=== PATIENT | female | born 1955 | race American Indian/Alaskan Native ===

== ENCOUNTER 2021-09-14 19:36 | Emergency (ER) | payer MEDICARE, OTHER ==
[~2021-09-14] VITALS: Ht 167.6 cm; Wt 67.3 kg
[~2021-09-14 19:36] MED LIST: METOCLOPRAMIDE10 MG PO
[2021-09-14] MEDS ORDERED: GLUCOTROL XL5 MG PO (19:54)
[2021-09-14] MEDS ORDERED: METFORMIN HCL500 MG PO (19:54)
[2021-09-14] MEDS ORDERED: LIPITOR20 MG GT (19:54)
[2021-09-14] MEDS ORDERED: D3 DOTS50 MCG PO (19:55)
[2021-09-14] MEDS ORDERED: GABAPENTIN300 MG PO (19:55)
[2021-09-14] MEDS ORDERED: PSEUDOEPHEDRINE60 MG PO (19:55)
--- NOTE | 2021-09-16 14:58 | EKG ---
[facility] [address] [facility] [place] [address] Signed Normal sinus rhythm Normal ECG No previous ECGs available Confirmed by GINETTE HUERTAS MD ([id number]) on 09/16/2021 2:58:25 PM Electronically Signed By: GINETTE HUERTAS MD 09/16/21 1458 PATIENT NAME: LEANNE ALTAMIRANO Electrocardiogram DATE OF : 57 PHYSICIAN: GINETTE HUERTAS MD REPORT #: [id number] REPORT IS CONFIDENTIAL AND NOT TO BE RELEASED WITHOUT AUTHORIZATION
== END 2021-09-14 23:18 | disposition left against medical advice (07) ==
LOC: ED 19:36
DX: R07.89 Other chest pain (principal); E11.40 Type 2 diabetes mellitus with diabetic neuropathy, unspecified; Z88.8 Allergy status to other drugs, medicaments and biological substances; Z79.84 Long term (current) use of oral hypoglycemic drugs; Z79.899 Other long term (current) drug therapy
CPT/HCPCS: 71045; 80053; 83690; 83735; 84484; 85025; 85379; 93005; 93010; 96374; 96375; 99285-25; J2765

== ENCOUNTER 2021-12-07 14:38 | Emergency (ER) | payer MEDICARE, OTHER ==
[~2021-12-07] VITALS: Ht 167.6 cm; Wt 66.7 kg
[~2021-12-07 14:38] MED LIST changes: +D3 DOTS50 MCG PO; +GABAPENTIN300 MG PO; +GLUCOTROL XL5 MG PO; +HYDROCODON-ACE1 EAC8 PO; +LIPITOR20 MG PO; +METFORMIN HCL500 MG PO; +NEXIUM 24HR20 M2 PO; +OXYCODONE HCL5 MG PO; +OXYCONTIN10 MG PO; +PSEUDOEPHEDRINE60 MG PO
--- OUTSIDE RECORDS SUMMARY | 2021-12-07 14:46 | XMS ---
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 09/14/2021 19:37 - Other Details: PATIENT LEFT AMA. CRITERIA MET - [facility] - 2 Visits in 30 Days - [facility] - Has Care Guidelines CARE PROVIDERS MAURICIO PRIEST [facility] 12/04/2021-Current PHONE: Unknown Shanti has no Care Guidelines for this patient. Care History Medical/Surgical 12/04/[address] [facility] - PATIENT IS [facility] ELIGIBLE, \T\middot;\T\nbsp; PLEASE REFER PATIENT TO [facility] FOR NON EMERGENT MEDICAL NEEDS. \T\middot;\T\nbsp; [facility] CAN SEE PATIENTS SAME DAY FOR APTS IF PATIENT CALLS FIRST THING IN THE MORNING. E.D. VISIT COUNT (12 MO.) 3 [facility]. TOTAL 3 NOTE: Visits indicate total known visits. 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 - Other superintendent marine oil terminal (current) drug therapy - Other chest pain - Chest pain, unspecified - Allergy status to other drugs, medicaments and biological substances - Type 2 diabetes mellitus with diabetic neuropathy, unspecified INPATIENT VISIT TRACKING (12 MO.) 12/03/2021 15:14 [facility] TYPE: Observation COMPLAINT: - UPPER GI BLEEDING DIAGNOSES: - Gastritis, unspecified, without bleeding - Type 2 diabetes mellitus with diabetic autonomic (poly)neuropathy - Fibromyalgia - Acute posthemorrhagic anemia - Type 2 diabetes mellitus with diabetic neuropathy, unspecified - Hyperlipidemia, unspecified - Esophagitis, unspecified with bleeding - Chronic or unspecified duodenal ulcer with hemorrhage - Hematemesis - Chronic pain syndrome - Essential (primary) hypertension - Gastroparesis - residential (current) use of oral hypoglycemic drugs - Gastritis, unspecified, with bleeding - Opioid dependence, uncomplicated [email or web address]
--- NOTE | 2021-12-07 18:58 | EKG ---
[facility] [address] [facility] [place], [place] [address] Signed Normal sinus rhythm Normal ECG When compared with ECG of 14-SEP-2021 19:57, No significant change was found Confirmed by ALEXANDRA MITCHELL DO ([id number]) on 12/07/2021 6:58:52 PM Electronically Signed By: ALEXANDRA MITCHELL DO 12/07/21 1858 PATIENT NAME: JADA LEANNE BRUSH Electrocardiogram DATE OF : 57 PHYSICIAN: ALEXANDRA MITCHELL DO REPORT #: [id number] REPORT IS CONFIDENTIAL AND NOT TO BE RELEASED WITHOUT AUTHORIZATION
== END 2021-12-07 19:05 | disposition home or self-care (01) ==
LOC: ED 14:38
DX: K92.2 Gastrointestinal hemorrhage, unspecified (principal); D64.9 Anemia, unspecified; E11.40 Type 2 diabetes mellitus with diabetic neuropathy, unspecified; Z88.8 Allergy status to other drugs, medicaments and biological substances; Z79.899 Other long term (current) drug therapy; Z79.84 Long term (current) use of oral hypoglycemic drugs; Z79.891 Long term (current) use of opiate analgesic
CPT/HCPCS: 36415; 71045; 80048; 84484; 85025; 93005; 93010; 99285-25

== ENCOUNTER 2022-08-12 21:13 | Inpatient (IN) | payer MEDICARE, OTHER ==
[~2022-08-12] VITALS: Ht 167.6 cm; Wt 68.1 kg
--- NOTE | ~2022-08-12 | OR ---
[place] [id number] [place], [place] [address] [place] DATE OF OPERATION: 08/17/2022 SURGEON: Padmini Banks MD PREOPERATIVE DIAGNOSIS: Hematochezia. POSTOPERATIVE DIAGNOSES: 1. Hematochezia. 2. Colonic polyps. PROCEDURE: Colonoscopy with biopsy. ANESTHESIA: Monitored anesthesia care. ESTIMATED BLOOD LOSS: None. SPECIMEN: Colonic polyps x2. FINDINGS: Ascending colon polyp, descending colon polyp. COMPLICATIONS: None. DISPOSITION: Stable to Postanesthesia Care Unit. INDICATIONS FOR THE PROCEDURE: The patient is a 67-year-old female, who presented with hematemesis and underwent EGD on 08/13. Large amount of blood was found in the stomach and duodenum. The patient continued to pass clots and blood per rectum. Concern was raised regarding possibility of lower GI component. Plan was made to proceed to the operating room for colonoscopy. Risks and benefits of the procedure were explained to the patient including, but not limited to bleeding, infection, missed diagnosis including cancer, perforation need for additional procedures, incomplete procedure, risk of anesthesia, aspiration, DVT, PE, PATIENT NAME: LEANNE ALTAMIRANO OPERATIVE REPORT DATE OF : 57 REPORT #: [id number] PHYSICIAN: PADMINI BANKS MD PCP: RAHAT MARIE MD REPORT IS CONFIDENTIAL AND NOT TO BE RELEASED WITHOUT AUTHORIZATION [address] [address] [place], stroke, and . The patient understood risks and signed informed consent. PROCEDURE IN DETAIL: The patient was taken to the operating room and monitored anesthesia care was established. The rectal exam was performed. No hemorrhoids were noted. Colonoscopy proceeded through the colon and rectum to the ileocecal valve. The ileocecal valve and appendiceal orifice were photographed. Bowel prep was poor. Withdrawal proceeded. The colonoscope was carefully withdrawn with visualization through the cecum, ascending colon, transverse colon, descending colon and sigmoid colon. An ascending colon polyp was identified and resected using cold snare. A descending colon was also noted and resected using cold forceps. Upon withdrawal into the rectum, retroflexion was performed. No hemorrhoids were noted and the area was photographed. There were no rectal lesions. The colonoscope was then removed. The patient tolerated the procedure without any complications and was transferred in stable condition to Postanesthesia Care Unit. MD KELTON lAdana/PATRICIA /[id number] Copies: ~ PATIENT NAME: LEANNE ALTAMIRANO LISANDRA OPERATIVE REPORT DATE OF : 57 REPORT #: [id number] PHYSICIAN: PADMINI BANKS MD PCP: RAHAT MARIE MD REPORT IS CONFIDENTIAL AND NOT TO BE RELEASED WITHOUT AUTHORIZATION
--- OUTSIDE RECORDS SUMMARY | 2022-08-12 21:16 | XMS ---
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 CRITERIA MET - PDMP - [facility] - Has Care Guidelines CARE PROVIDERS MAURICIO PRIEST [facility] 12/04/2021-Current PHONE: Unknown Shanti has no Care Guidelines for this patient. Care History Medical/Surgical 12/04/2021 [facility] - PATIENT IS [facility] ELIGIBLE, \T\middot;\T\nbsp; PLEASE REFER PATIENT TO [facility] FOR NON EMERGENT MEDICAL NEEDS. \T\middot;\T\nbsp; [facility] CAN SEE PATIENTS SAME DAY FOR APTS IF PATIENT CALLS FIRST THING IN THE MORNING. E.D. VISIT COUNT (12 MO.) 4 [facility]. TOTAL 4 NOTE: Visits indicate total known visits. ED/UCC VISIT TRACKING (12 MO.) 08/12/2022 21:[address] 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 12/03/2021 15:13 [facility] TYPE: Emergency COMPLAINT: - VOMITING BLOOD 09/14/2021 19:37 [facility] TYPE: Emergency COMPLAINT: - CHEST PAIN DIAGNOSES: - Chest pain, unspecified - Other skilled nursing (current) drug therapy - Allergy status to other drugs, medicaments and biological substances - Other chest pain - alf (current) use of oral hypoglycemic drugs - Type 2 diabetes mellitus with diabetic neuropathy, unspecified INPATIENT VISIT TRACKING (12 MO.) 12/03/2021 15:14 [facility] TYPE: Observation COMPLAINT: - UPPER GI BLEEDING DIAGNOSES: - Acute posthemorrhagic anemia - Chronic pain syndrome - Type 2 diabetes mellitus with diabetic autonomic (poly)neuropathy - Chronic or unspecified duodenal ulcer with hemorrhage - Opioid dependence, uncomplicated - Esophagitis, unspecified with bleeding - alf (current) use of oral hypoglycemic drugs - Type 2 diabetes mellitus with diabetic neuropathy, unspecified - Essential (primary) hypertension - Fibromyalgia - Hematemesis - Gastritis, unspecified, without bleeding - Contact with and (suspected) exposure to COVID-19 - Gastritis, unspecified, with bleeding - Hyperlipidemia, unspecified - Gastroparesis [email or web address]
--- NOTE | 2022-08-13 08:00 | NUR ---
PT ARRIVES TO CCU VIA FARHEEN. AAO X 4. INITIAL VS STABLE - LEVOFED DRIP STOPPED. PROTONIX CONTINUOUS INFUSION IN RIGHT IJ. PT DENIES PAIN AND NAUSEA AT THIS TIME.
[2022-08-13] MEDS ORDERED: PANTOPRAZOLE SO40 MG PO (08:34)
[2022-08-13] MEDS ORDERED: METFORMIN HCL500 M1 PO (08:36)
[2022-08-13] MEDS ORDERED: DICLOFENAC SOD100 G1 TOP (08:37)
--- NOTE | 2022-08-13 08:47 | NUR ---
PATIENT FOR ASSISANCE CALLING HER . IN ROOM AT THIS TIME
--- NOTE | 2022-08-13 08:47 | NUR ---
PATIENT CALLED TO CALL . IN ROOM AT THIS TIME
--- NOTE | 2022-08-13 09:14 | NUR ---
PRN MORPHINE PROVIDED FOR GENERALIZED PAIN R/T NG TUBE PLACEMENT.
--- NOTE | 2022-08-13 09:48 | NUR ---
NG TUBE PLACED BY CCU RN IN RIGHT NARE, CXR OBTAINED FOR PLACEMENT CONFIRMATION. PT TOLERATED WITH MODERATE DISCOMFORT, NO EMISIS. LAVAGE PER ORDER TO BE STARTED ONCE XRAY READ. PT PROVIDED SPONGE FOR ORAL CARE. DENIES FURTHER NEEDS AT THIS TIME.
--- NOTE | 2022-08-13 10:00 | NUR ---
MOIST MOUTH SPONGES AT BEDSIDE FOR ORAL CARE. CALL LIGHT IN EASY REACH
--- NOTE | 2022-08-13 10:30 | NUR ---
FORD CATH PULLED PER VERBAL ORDER FROM DR. HUERTAS. PT TOLERATED WITHOUT DIFFICULTY. 225 OUT SINCE ARRIVING TO FLOOR.
--- NOTE | 2022-08-13 10:58 | NUR ---
NG TUBE IRRIGATED WITH 250ML OF STERILE WATER, CLAMPED FOR 10 MIN, NO ON LOW INT SUCTION. PT DENIES NAUSEA. PT DROWSY RESTING IN BED. SWABS PROVIDED FOR ORAL CARE.
--- NOTE | 2022-08-13 11:00 | NUR ---
Spoke with Veronique. She was not feeling well and interview was short. Pt lives in a house with her spouse, brothers, and disabled 46 yo son. She does not use any DME. Denies issues getting in or out of her home. Will follow up tomorrow with more in depth interview.
--- NOTE | 2022-08-13 12:00 | NUR ---
RN IN ROOM TO ASSESS PT - GI LAVAGE VIA NG CONTINUING, SUCTION CONTENTS LIGHTENING IN COLOR, COFFEE GROUND SEDIMENT, NO SAULO BLOOD NOTED. H/H STABLE, VS STABLE.
--- NOTE | 2022-08-13 12:49 | NUR ---
VITALS CHARTED. CALL LIGHT IN EASY REACH
--- NOTE | 2022-08-13 13:20 | NUR ---
250 ML OF WATER INSTILLED TO NG TUBE THEN CLAMPED. PATIENT IS RESTING AND DENIES NAUSEA. HOB ELEVATED.
--- NOTE | 2022-08-13 14:51 | NUR ---
PT RESTING IN BED - PRE PROCEDURE VOID TO BSC COMPLETE. LAVAGE COMPLETE. PT EDUCATED ON POC AND EGD PROCEDURE. PT STATES SHE FEELS "BETTER ACTUALLY". UPDATED VIA TELEPHONE.
--- NOTE | 2022-08-13 16:14 | NUR ---
PT USES CALL LIGHT TO ALERT DS STAFF OF URGE TO VOID. PT UP TO BEDSIDE COMMODE AND ABLE TO VOID 100 MLS LIGHT POOJA COLORED URINE. BACK TO STRETCHER AND PROVIDED WARM BLANKET AND TISSUE PER REQUEST. CALL LIGHT WITHIN REACH.
--- NOTE | 2022-08-13 19:00 | NUR ---
PT ARRIVES TO FLOOR FROM OR VIA STRETCHER ALERT BUT DROWSY. CURRENTLY ON 10L VIA OXYMASK, SPO2 VARIABLE WITH PROBE ON LEFT EAR LOBE - HOB ELEVATED. RR 32, ONE UNIT OF BLOOD FINISHING INFUSING UPON ARRIVAL. PT BP STABLE AFTER REPOSISTIONING TO BED. APPROX 50 ML OF BLOODY LIQUID STOOL NOTED ON CHUX AND CLEANED. PT APPEARS MORE PALE AND ABD DISTENDED THAN BEFORE EGD PROCEDURE. IVF RECONNECTED PER ORDER AT 100 AND PROTONIX INFUSION RESTARTED AT 25ML/H. PT EXTREMETIES COLD, WARM BLANKETS APPLIED.
--- NOTE | 2022-08-13 19:50 | NUR ---
PT RESTIGN IN BED, HANDS ON SIDE RAILS, SHE IS SAYING "HURRY, HURRY HURRY" SHE IS ASKING FOR PAIN MEDICATIONS, 2MG IV MORPHINE ADMINISTERED AT THIS TIME, TXA STARTED, PT NOW RELAXING MORE, NO LONGER VERBALIZING DISTRERSS POST PAIN MEDICATIONS, V/S STABLE
--- NOTE | 2022-08-13 20:13 | NUR ---
pt resting in bed, alert to staff. blood draw from ij blue line, shut off all infusions, wasted 8ml of blood and draw additional 10ml for lab technician at bedside. pt off bed gomez, txa infusion complete, blood units ready in lab per notification, platlets to be 4 hours to arrive per lab report over phone.
--- NOTE | 2022-08-13 20:35 | NUR ---
DR HUERTAS NOTIFIED OF CALCIUM 5.8
--- NOTE | 2022-08-13 20:45 | NUR ---
NOTIFIED OF MORE DARK COLORED BLOOD STOOL AT THIS TIME.
--- NOTE | 2022-08-13 20:46 | NUR ---
08/13/222045 EstefaniUrsula 1754- PT ARRIVES TO PACU REACTIVE TO PAINFUL STIMULI. PT IS NEEDING A JAW THRUST TO KEEP AIRWAY OPEN AND PT RESPONDING. RESP EVEN AND TACHYPNEIC. PT PLACED ON AN EAR PROBE FOR OXYGEN SAT HER PULSE OX ON HER FINGER IS NOT GETTING A GOOD SIGNAL. COPRA SAMPLER AND MULTIPLE RN'S AT THE BEDSIDE. FLUID IS ON PRESSURE BAG. 1800- BLOOD SUGAR IS 162 TAKEN BY SHERIN CABA RN. 180- PT IS ABLE TO SAY SHE IS NAUSEOUS. DIFFICULT TO UNDERSTANDING. PT PROVIDED EMESIS BAG AND SUCTION READY. PT LAYING SLIGHTLY ON HER LEFT SIDE WITH HER HEAD TURNED. 180- OXYGEN SAT DROPPED TO THE HIGH 80'S ON 6L VIA OXYMASK. OXYGEN INCREASED TO 10L VIA OXYMASK. 180- PT PASSING FLATUS AND DARK RED, GELATINOUS STOOL. CHUX BEING PLACED UNDER PT. PT CLEANSED WITH WIPES. COPRA SAMPLER REMAINS AT THE BEDSIDE AND AWARE. 180- OXYGEN TITRATED DOWN TO 6L VIA OXYMASK HER OXYGEN SAT HAS BEEN READING IN THE HIGH 90'S ON 10L. 181- ZOFRAN PROVIDED IV PT IS ABLE TO STATE SHE IS FEELING NAUSEOUS. PT DOES NOT FOLLOW COMMANDS WELL. BESIDES SAYING SHE IS NAUSEOUS, PT IS SAYING, "HELP ME" IN QUITE TONES. PT DOES NOT OPEN HER EYES. PT PASSING MORE DARK, RED GELANTINOUS STOOL. CHUX REMOVED. PT PLACED ON A BED PAULA. PT IS MOVING AROUND IN THE BED OFTEN AND CLENCHING HER EYES SHUT. PT DOES NOT ANSWER IF SHE IS HAVING PAIN. 1819- OXYGEN TITRATED BACK UP TO 10L VIA OXYMASK PT'S OXYGEN SAT DROPPING INTO THE LOW TO MID 80'S ON 6L VIA OXYMASK. PT WAKES UP ON AND OFF ON HER OWN ASKING FOR HELP. PT DOES NOT ANSWER QUESTIONS APPROPRIATELY OR FOLLOW COMMANDS WELL. PT IS NO LONGER REPORTING NAUSEA. ANOTHER RN IN LAB OBTAINING BLOOD. 1825- BLOOD STARTED ON PRESSURE BAG. COPRA SAMPLER REMAINS AT THE BEDSIDE ALONG WITH MULTIPLE RN'S. PT STATING, "PLEASE HURRY". PT HAS BLANKETS OFF SHE HAS PUSHED THEM OFF OF HER. PT NODS WHEN ASKED IF SHE IS HOT. COOL AIR BEING PROVIDED. 1834- PT IS CALM IN THE BED AT THIS TIME. FACE IS RELAXED AND PT IS NO LONGER MOVING IN THE BED. PT DOES WAKE UP ON AND OFF, STILL REMAINS NOT FOLLOWING ALL COMMANDS. 183- PT HOLDING HER EYES CLOSED AND MOVING AROUND IN BED AGAIN. ATTEMPTING TO REORIENTED THE PT. TOLD PT HER PROCEDURE WAS OVER AND SHE WAS RECEIVING BLOOD TO HELP HER. PT STATES, "PLEASE HURRY". CONTINUE TO TRY TO REORIENT THE PT AND LET HER KNOW SHE IS GETTING HELP. 184- PT TAKEN OFF THE BEDPAN. MORE DARK RED GELANTINOUS STOOL NOTED. BLOOD REMAINS ON A PRESSURE BAG. PT BEING TAKEN DOWN TO CCU. 185- PT BEING TURNED AND CLEANED BY MULTIPLE RN'S DUE TO STOOL. PT PROVIDED A CLEAN GOWN AND FRESH CHUX AND LINENS. PT IS CALM AND NO LONGER SAYING, "PLEASE HURRY". PT ABLE TO BE TRANSFERRED TO THE HOSPITAL BED. 1854- BLOOD ADMINISTRATION COMPLETED. DR. HUERTAS AT THE BEDSIDE. REPORT GIVEN TO CCU RN. ALL QUESTIONS ANSWERED. PT POSITIONED IN BED. PT REMAINS ON 10L OXYGEN VIA OXYMASK. RESP EVEN AND TACHYPNEIC. OXYGEN SAT LOW TO MID 90'S ON THIS. PT REMAINS MORE RELAXED. WAKES UP OFF AND ON. REMAINS ONLY FOLLOWING SOME COMMANDS. BED IN LOWEST POSITION, BED RAILS UP X3, CALL LIGHT PROVIDED. LR REMAINS INFUSING INTO THE CENTRAL LINE.
--- NOTE | 2022-08-13 20:59 | NUR ---
PT CLEANED UP OF AND LINENS CHANGED, FIRST UNIT OF BLOOD TRANSFUSING AT THIS TIME.
--- NOTE | 2022-08-13 21:33 | NUR ---
PT IS RESTING IN BED, EYES CLOSED SNORING NOTED. NO DISTRESS, PT HAS HAD ANOTHER SMALL DARK RED BM AT THIS TIME. SPOUSE HAS LEFT FOR NIGHT, HE ASKS TO BE CALLED IF THERE ARE ANY SIGNIFICANT CHANGES OVERNIGHT
--- NOTE | 2022-08-13 22:44 | NUR ---
ALEKSANDAR ALVARADO NOTIFIED OF PT STATUS, 1ST UNIT BLOOD COMPLETE, PT CLEANED FROM INCONT OF DARK RED BLOOD. V/S STABALIZING. SHE IS ALERT AND ORIENTED.
--- NOTE | 2022-08-13 23:06 | NUR ---
PT NOW ON ROOM AIR 94% OXYGEN SATURATION. PT SITTING UP EATING ICE CHIPS AT THIS TIME, 2MG IV MORPHINE GIVEN FOR PAIN 7/10 AT HER LOWER BACK
--- NOTE | 2022-08-14 00:38 | NUR ---
BLOOD COMPLETE, PT REPORTS MILD NAUSEA, CALLED FOR NAUSEA MEDICATIONS, NEW ORDERS. PT ASK IF PAIN MEDICATION AVAILABLE AT THIS TIME
--- NOTE | 2022-08-14 02:05 | NUR ---
platlets infusing at this time, pt resting in bed, eyes closed v/s stable. pt cleaned from dark red blood bm
--- NOTE | 2022-08-14 02:28 | NUR ---
UNIT TWO OF PLAELETS STARTED AT THIS TIME. PT RESTING QUIETLY I BED EYES CLOSED SNORING NOTED, NO DISTRESS OR NEW CONCERNS AT THIS TIME.
--- NOTE | 2022-08-14 03:40 | NUR ---
CALLED TO UPDATE THAT PT HAS CONTINUED TO HAVE RED BLOOD STOOLS, JUST HAD LARGE RED BLOODY STTOL LARGE/LIQUID,DISCUSSED LABS AND NEW ORDERS TO INSURE TWO MORE RBC IN LAB CROSS MATCHED AT THIS TIME, ALSO ORDER FOR TAG RED BLOOD CELL SCAN TO BE DONE IN AM, STAT., PLAN TO HAVE DONE IN AM. THIS ORDER HAS BEEN PLACED.
--- NOTE | 2022-08-14 03:59 | NUR ---
PT ADMINISTERED ONE TIME DOSE OF 4MG IV MORPHINE FOR PAIN 05/06, AT THIS TIME. GAVE PT EDUCATION ABOUT PLAN FOR SCAN IN AM TO TRY TO IDENTIFY SOURCE OF BLEED. PT SAID "I SURE HOPE SO" SHE THANKED THIS RN FOR CARE PROVIDED AT THIS TIME
--- NOTE | 2022-08-14 05:31 | NUR ---
PT CLEANED FOR INCONT OF RED BM, REPOSITIONED. NO FIRTHER REQUESTS AT THIS TIME. PT ALERT AND ORIENTED
--- NOTE | 2022-08-14 05:36 | NUR ---
OK WITH WAITING FOR 0800 LAB DRAWS FOR PROTIME LABS SCHEDULED FOR 0600.
--- NOTE | 2022-08-14 06:40 | NUR ---
BLOOD SAMPLE DRAWN FOR BALDEV [employer] [facility], FOR SCAN PROCEDURE, HEPARIN PULLED FROM [employer] PER BALDEV'S REQUEST FOR HIM TO ADD TO BLOOD SAMPLE TO PREVENT CLOTTING. PT ID CURRENTLY HAVING ANOTHER BLOODY BM AT THIS TIME.
--- NOTE | 2022-08-14 06:58 | NUR ---
PT REPORTS PAIN 7/10 GENERALIZED AND LOWER BACK. SHE IS CURRENTLY BEING CLEAN OF ANOTHER LIQUID BLOODY BM.
--- NOTE | 2022-08-14 07:35 | NUR ---
PT OFF FLOOR IN NUC MED ACCOMPANIED BY FLORAFA HDZ.
--- NOTE | 2022-08-14 08:45 | NUR ---
PT BACK TO ROOM FROM RADIOLOGY. AAO X 4, VS STABLE. PT DENIES NAUSEA, NOT DUE FOR PAIN MEDICATION. ATTENDS CLEAN - PT DENIES RECENT BM. ABD FIRM AND INCREASINGLY BLOATED. EXTREMEITIES COOL AND PALE. IJ FLUSHED, ALL 3 LINES PULL BACK BLOOD EASILY - IVF RESTARTED. PT IN BETTER SPIRITS TODAY, CONVERSING ABOUT MEMORIES OF HER SISTER.
--- NOTE | 2022-08-14 09:25 | NUR ---
PT ATE 15% OF BREAKFAST AND 120 MLS OF MILK. IV ABX FINISHED INFUSING. PT REMAINS UP IN CHAIR. CALL LIGHT WITHIN REACH. WILL CONTINUE TO MONITOR.
--- NOTE | 2022-08-14 09:25 | NUR ---
Patient had bleeding during the night. Patient is in [facility] [place].Will revisit after the OR.
--- NOTE | 2022-08-14 10:00 | NUR ---
RN IN ROOM TO ROUND ON PT - PT INC OF LARGE LIQUID RED STOOL. COMPLETE BED BATH PROVIDED WELL LINEN CHANGE. PT TOLERATES ROLLING IN BED AND REPOSITIONING WITHOUT DIZZINESS OR DIFFICULTY, FATIGUED.
--- NOTE | 2022-08-14 10:00 | NUR ---
COMPLETE BEDBATH AND LINEN CHANGE PROVIDED. PATIENTS HAIR WASHED AND COMBED OUT. CLEAN BRIEF AND GOWN ON PATIENT. ROOM TIDIED. PATIENT COMFORTABLE AND TIRED. CALL LIGHT IN EASY REACH
--- NOTE | 2022-08-14 11:00 | NUR ---
RN IN ROOM ROUNDING WITH . PT STATES UNDERSTANDING OF POC AND DENIES QUESTIONS. PT INC OF LIQUID RED STOOL, APPROX 50ML IN VOLUME. CLEAN ATTENDS IN PLACE. IV FLUID RATE SET TA 75ML/H PER ORDER. PT EXCITED TO USE BSC FOR BM AND STATES SHE THINKS SHE IS GETTING HUNGRY. 4MG PRN MORPHINE ADMINISTERED PER REQUEST FOR GENERALIZED 8/10 PAIN. CALMING MUSIC TURNED ON AND LIGHTS LOWERED TO HELP FACILITATE A NAP. PT HAS CALL LIGHT AT SIDE.
--- NOTE | 2022-08-14 12:38 | NUR ---
RN IN ROOM TO ASSESS PT - PT RESTING IN BED, STATES SHE WAS ABLE TO GET SOME REST. LILIANA DC'D PER MD ORDER. PT TOLERATED THIS WITH MODERATE PAIN, BURNING AT URETHRAL SITE. NO LIQUID STOOL NOTED IN ATTENDS. VS REMAIN STABLE. PT DENIES FURTHER NEEDS. CALL LIGHT IN REACH.
--- NOTE | 2022-08-14 14:17 | NUR ---
RN ROUNDING ON PT - RESTING IN BED ASLEEP WITH CALL LIGHT IN HAND.
[2022-08-14] MEDS ORDERED: VITAMIN B-121000 MCG PO (15:56)
[2022-08-14] MEDS ORDERED: HARD NAILS2500 MCG PO (16:00)
[2022-08-14] MEDS ORDERED: IRON CHEWS15 MG PO (16:01)
[2022-08-14] MEDS ORDERED: CLOTRIMAZOLE30 ML TOP (16:03)
[2022-08-14] MEDS ORDERED: TRIAMCINOLONE A15 G3 TOP (16:04)
--- NOTE | 2022-08-14 16:04 | NUR ---
MED REC COMPLETE
--- NOTE | 2022-08-14 16:10 | NUR ---
PTS IN ROOM VISITING, PT DOES NOT APPEAR TO BE IN DISTRESS RESTING IN BED.
--- NOTE | 2022-08-14 16:44 | NUR ---
RN IN ROOM TO ASSESS PT AND ADMINISTER REQUESTED MORPHINE. PT STATES PAIN IS 10/10 IN HER HEAD AND LOWER BACK/GENERALIZED. PT UP TO COMMODE WITH OTHER RN TO HAVE LIQUID BM - REMIANS BURGENDY IN COLOR.
--- NOTE | 2022-08-14 18:00 | NUR ---
RN ROUNDING ON PT - ASLEEP IN BED ON BACK, RR EVEN AND UNLABORED. CALL LIGHT IN REACH.
--- NOTE | 2022-08-14 22:18 | NUR ---
PT UP TO BEDSIDE COMMODE WITH ASSISTANCE WITH LINES OTHERWISE SUPERVISED, SHE HAS SMALL DARK RED CURRANT JELLY TEXTURE BM. PT TOLERATED ACTIVITY WELL NO DISTRESS, SHE IS LAUGHING AND VISITNG WITH STAFF, THANKED THIS RN FOR ASSISTANCE AND WENT BACK TO BED. NO OTHER CONCERNS OR REQUSETS AT THIS TIME
--- NOTE | 2022-08-15 00:52 | NUR ---
PT CALLED TO REPORT PAIN 8/10 GENERALIZED/BACK, 4MG IV MORPHINE ADMINSITERED AT THIS TIME. ICE CHIPS PROVIDED PER PT REQUEST. SHE REPORTS HER BACK IS ITCHY, LOTION APPLIED, PT REPORTS BETTER, NO OTHER CONCERNS OR REQUESTS AT THIS TIME.
--- NOTE | 2022-08-15 02:06 | NUR ---
PT RESTING IN BED EYES CLOSED RESP REGULAR, SNORING NOTED, PT ALERT THIS RN DRAWING BLOOD FROM IJ, ALSO CHECKED BLOOD SUGAR AT BEDSIDE WITH BLOOD DRAWN FROM IJ. PT SAID "I THINK I MAY HAVE HAD AN ACCIDENT" SAMPLE SENT TO LAB, PT CHECKED FOR INCONT, PT HAS NOT HAD INCONT. PT ASKED ABOUT WHEN PAIN MEDICATIONS IS DUE AGAIN, EXPLAINED DOSES, SHE SAID "OK, I WAS JUST WONDERING" NO OTHER REQUESTS OR COCNERNS AT THIS TIME.
--- NOTE | 2022-08-15 04:43 | NUR ---
PT REPORTS PAIN 8/10 AT HER BACK. 4MG IV MORPHINE PRN AT THIS TIME. PT ALERT AND ORIENTED. NO NEW CONCERNS.
--- NOTE | 2022-08-15 07:30 | NUR ---
Spoke with pt. She is feeling better, but did have some bleeding last night. Complaint of uncomfortable mattress. Offered coloring book and pencils and she would like. Delivered to the room.
--- NOTE | 2022-08-15 08:00 | NUR ---
IN ROOM FOR MEDICATION ADMINISTRATION AND ASSESSMENT. PT REPORTS BACK PAIN, DENIES NAUSEA OR ABDOMINAL PAIN. ASSISTED WITH REPOSITIONING IN BED. IV FLUIDS INFUSING. RN KIMBERLY PURVIS IN ROOM AT THIS TIME TO DRAW BLOOD FOR LAB OFF OF CENTRAL LINE. PLAN OF CARE ESTABLISHED FOR DAY. CALL LIGHT WITHIN REACH. WILL CONTINUE TO MONITOR.
--- NOTE | 2022-08-15 08:05 | NUR ---
BLOOD DRAWN FROM RIJ. CBC, BMP SENT TO LAB. REQUESTING PAIN MED. UPON RN LEAVING ROOM, PATIENT BACK TO SLEEP. NO DISTRESS NOTED.
--- NOTE | 2022-08-15 08:15 | NUR ---
HGB-8.5, HCT-24.7. THESE RESULTS FOR MOST RECENT BLOOD DRAW.
--- NOTE | 2022-08-15 08:30 | NUR ---
AMBULATED TO BR, IS FAIRLY STABLE ON FEET. HAD SMALL LIQUID RED STOOL. DENEIS CRAMPING IN ABD, DENIES NAUSEA. DENEIS DIZZINESS.
--- NOTE | 2022-08-15 09:08 | NUR ---
MORPHINE 4 MG IV GIVEN FOR PAIN IN LOWER BACK, HIPS, ABD.
--- NOTE | 2022-08-15 09:10 | NUR ---
RIBBER AT BEDSIDE AT THIS TIME TO COMPLETE ECHOCARDIOGRAM
--- NOTE | 2022-08-15 09:59 | NUR ---
NAPPING AFTER MORPHINE GIVEN.
--- NOTE | 2022-08-15 10:14 | NUR ---
HAD 2 RUNS OF PSVT BACK TO BACK. HR 143. PATIENT IS RESTING ON LEFT SIDE. HR TO 95 AFTER PSVT RESOLVED.
--- NOTE | 2022-08-15 10:20 | NUR ---
DR. HUERTAS HERE TO SEE PATIENT. HE WILL TALK WITH DR. BANKS ABOUT PLAN FOR THE PATIENT.
--- NOTE | 2022-08-15 12:00 | NUR ---
AMBULATED TO BR, VOIDED AND DID HAVE MED SIZE RED CLOT FOR RECTUM. ADL CARES GIVEN. ASKING FOR PAIN MEDICATION.C/O PAIN IN LOWER BACK, HIPS, ABD. TOLD PATIENT SHE COULD HAVE PAIN MED IN ABOUT AN HOUR. ARGENIS NAUSEA.
--- NOTE | 2022-08-15 12:30 | NUR ---
DR. BANKS HERE TO SEE PATIENT. SAW THE MOST RECENT BLOODY STOOL. PLAN IS TO DO CT ANGIOGRAM AND POSSIBLE COLONOSCOPY TOMORROW.
--- NOTE | 2022-08-15 14:40 | NUR ---
UP TO BR TO VOID AND EXPELL SMALL RED CLOT. TO CT VIA W/C ACCOMP BY WILDER.
--- NOTE | 2022-08-15 15:10 | NUR ---
TOLERATED CT WELL. BACK TO BED W/O INCIDENT. HAS BEEN STLKATIVE AND IN GOOD SPIRITS TODAY
--- NOTE | 2022-08-15 16:35 | NUR ---
TO BR TO VOID AND EXPELL ANOTHER LIQUID RED STOOL. CLEAR LIQ DIET ORDERED BY DR. HUERTAS.
--- NOTE | 2022-08-15 18:55 | NUR ---
DR. BANKS UPDATED ON PATIENT. ORDERS RECIEVED TO START BOWEL PREP IN AM. PT TO BR TO VOID. DENIES DIZZINESS. BACK TO BED W/O INCIDENT.
--- NOTE | 2022-08-15 20:00 | NUR ---
RN IN ROOM TO ASSESS PT - 2000 LABS DRAWN FROM PROXIMAL LUMEN, 10 WASTED AND FLUSHED WITH 20ML. CBG REQUIRES 3 UNITS INSULIN, PT COOPERATIVE WITH THIS ALTHOUGH HESITANT RT FEAR OF NEEDLES. PT ABMULATES TO BATHROOM TO HAVE BM, BURGENDY CLOTTED LIQUID BLOODY STOOL, SMALL IN AMOUNT. PT DENIES DIZZINESS OR SOB WITH AMBULATION. VS ALL WNL. IN ROOM TO VISIT. CALL LIGHT IN REACH.
--- NOTE | 2022-08-15 21:34 | NUR ---
RN IN ROOM TO ADMINISTER REQUESTED PRN MORPHINE FOR 8/10 PAIN IN HIPS AND BACK. PT RESTING IN BED WATCHING TV. DENIES FURTHER NEEDS, CALL LIGHT IN REACH.
--- NOTE | 2022-08-15 23:23 | NUR ---
RN ROUNDING ON PT - RESTING ON BACK IN BED ASLEEP. CALL LIGHT AT SIDE.
--- NOTE | 2022-08-16 00:41 | NUR ---
RN ROUNDING ON PT - REMIANS ASLEEP IN BED, RR EVEN AND UNLABORED. CALL LIGHT IN REACH. VS ON MONITOR REMAIN WNL.
--- NOTE | 2022-08-16 01:30 | NUR ---
RN IN ROOM TO ASSESS PT - PT WAKES EASILY WITH SOUND. REQUESTS PRN PAIN MEDICATION FOR 8/10 GENERALIZED PAIN. STATES SHE FEELS ANXIOUS ABOUT COLONOSCOPY PROCEDURE - EDUCATION PROVIDED. ASSESSMENT UNCHANGED FROM PREVIOUS. CALL LIGHT IN REACH.
--- NOTE | 2022-08-16 03:46 | NUR ---
rn rounding on pt - resting in bed with eyes closed. rr even and unlabored, vs on monitor wnl.
--- NOTE | 2022-08-16 03:47 | NUR ---
RN ROUNDING ON PT - PT REQUESTS TO AMBULATE TO BATHROOM TO VOID. STABLE ON FEET AND WITHOUT DIZZINESS. URINE VOID ONLY. PT BACK TO BED WITH 2L VIA NC FOR SP02 OF 85-90%. CALL LIGHT IN REACH.
--- NOTE | 2022-08-16 06:21 | NUR ---
RN IN ROOM TO ROUND ON PT - PT WAKES EASILY WITH TOUCH TO OBTAIN VS. PT REQUESTS PRN MORPHINE FOR 7/10 BACK PAIN. ENCOURAGED STRETCHING WITH AMBULATION WELL. IVF REMAIN INFUSING AT 75 H, AM LABS PULLED FROM IJ PER CENTRAL LINE PROTOCOL. PT DENIES FURTHER NEEDS. CALL LIGHT AT SIDE.
--- NOTE | 2022-08-16 07:30 | NUR ---
PATIENT SHIFT REPORT RECIEVED FROM LABOR DELIVERY SPECIALIST RN. PATIENT IS RESTING IN BED. PATIENT CALLS APPROPRIATELY NEEDED. PRN PAIN MEDICATION GIVEN BEFORE SHIFT CHANGE FOR PATIENTS CHRONIC PAIN. WILL CONTINUE TO CLOSELY MONITOR.
--- NOTE | 2022-08-16 08:00 | NUR ---
PATIENT UP TO BR WITH SBA, FACE AND HANDS WASHED VITALS AND I&OS CHARTED. LINEN CHANGED. PATIENT REFUSED SITTING UP IN RECLINER FOR BREAKFAST, WILL TRY AGAIN AT LUNCH. CALL LIGHT AND PERSONAL ITEMS IN EASY REACH
--- NOTE | 2022-08-16 09:00 | NUR ---
PATIENTS ASSESSMENT COMPLETED. PATIENT IS RESTING IN BED AT THIS TIME. STAMPING DIE MAKER KASEY WITH PATIENT. PATIETNS BREATH SOUNDS CLEAR. BOWEL TONES HYPOACTIVE. PATIENTS ABD IS DISTANDED. PATIENT ON 2L OVERNIGHT D/T DESAT'S WHILE SLEEPING. REMOVED OXYGEN AND PATIENTS SPO2 97%. PATIENT HAD DEPENDENT EDEMA IN ANKLES. PATIENT IS ALERT AND JOKES WITH STAFF. MEDICATIONS GIVEN.
--- NOTE | 2022-08-16 09:30 | NUR ---
THIS SN, KASEY ABDULLAHI, INTO PT ROOM TO ADMINISTER PROTONIX/BEGIN MIRAX PREP WITH PRIMARY RN (SEE EMAR). PT AMBULATED STANDBY ASSIST TO USE BATHROOM WITH THIS SN. PT AMBULATED STANDY ASSIST BACK TO BED. I&O'S RECORDED. RETRIEVED WARM BLANKET FOR PT AND STRAW FOR MIRALAX. ASSISTED PT IN TURNING ON VOLUME FOR TV. COMODE PLACED AT BEDSIDE. CALL LIGHT WITHIN REACH.
--- NOTE | 2022-08-16 11:00 | NUR ---
MD HUERTAS WAS IN TO SEE PATIENT THIS AM. REVIEWED PLAN OF CARE. ALL QUESTIONS ANSWERED. PATIENT UP TO THE BATHROOM WITH STUDENT NURSE AND TOELRATED WELL. PATIENT HAD A SMALL BM THAT WAS SEMI FORMED. PATIENT TOELRATED WELL. MEDICATIONS GIVEN. PATIENT COMPLAINED OF ABD PRESSURE AT TIMES MAKES HER BELLY FEEL TIGHT AND DIFICULT TO TAKE A DEEP BREATH. REPOSITIONING HELPS WITH THIS. NO OTHER NEEDS AT THIS TIME. WILL CONTINUE TO CLOSELY MONITOR.
--- NOTE | 2022-08-16 12:29 | NUR ---
PATIENT UP TO BSC FOR VOID. VITALS AND I&OS CHARTED.
--- NOTE | 2022-08-16 13:00 | NUR ---
PATIENT RESTING IN BED. PATIENT ASKED FOR THE REMOTE CONTROLLER AND REPOSITIONED HERSELF IN BED. PATIENT DENIES ANY PAIN MEDICATIONS AT THIS TIME. WILL CONTINUE TO CLOSELY MONITOR.
--- NOTE | 2022-08-16 15:00 | NUR ---
PATIENT UP TO [facility] WITH NANY QUINN. PATIENT CONTINUES TO WORK ON DRINKING THE BOWEL PREP. PATIENT TOLERATING WELL. MD WAS IN TO SEE PATIENT AND REVIEWED PLAN OF CARE WITH HER. PATIENT WILL FINISHE BOWEL PREP TODAY AND DO COLONOSCOPY TOMORROW. NO OTHER NEEDS AT THIS TIME. CALL LIGHT WITHIN REACH. PATIENT HAS HAD MULTIPLE PHONE CALLS THAT HAVE BEEN TRANSFERED IN TO HER. NO OTHER NEEDS AT THIS TIME. WILL CONTINUE TO CLOSELY MONITOR.
--- NOTE | 2022-08-16 16:32 | NUR ---
THIS SN IN TO GIVE MEDICATIONS/CHECK BLOOD SUGAR WITH PRIMARY NURSE (SEE EMAR). VISITED WITH PATIENT AND RETRIEVED WARM BLANKET FOR HER. ENCOURAGED PT TO CONTINUE TO WORK ON DRINKING BOWEL PREP. CALL LIGHT WITHIN REACH.
--- NOTE | 2022-08-16 18:50 | NUR ---
LABS DRAWN FROM CENTRAL LINE. 10 MLS WASTED. PATIENT HAS BEEN ENCOURAGED TO DRINK BOWEL PREP ALL DAY TODAY APPROX EVER 30MINS-1 HOUR. PATIENT EDUCATED MULTIPLE TIMES ABOUT THE NEED FOR BOWEL PREP SO MD CAN DO COLONOSCOPY TOMMORROW AFTERNOON. PATIENT CONTINUES TO SLOWLY DRINK IT. WARM BLANKET PROVIDED. WILL CONTINUE TO CLOSELY MONITOR.
--- NOTE | 2022-08-16 19:54 | NUR ---
RN IN ROOM TO ASSIST PT TO BSC - PT DENIES DIZZINESS OR INCREASED WEAKNESS WITH THIS.
--- NOTE | 2022-08-16 20:00 | NUR ---
RN IN ROOM TO ASSESS PT - PT UP TO BATHROOM TO VOID FREQUENTLY, LIQUID GREEN STOOL PRODUCED SO FAR. PT COMPLAINS OF BEING TIRED AND COLD FROM THIS. OTHER SIG ASSESSMENT FINDINGS - ABD INCREASING IN FIRMNESS AND DISTENTION, CAUSING SOME SOB WHEN LAYING DOWN AND DRINKING.
--- NOTE | 2022-08-16 21:00 | NUR ---
RN IN ROOM TO ADMINISTER SCHEDULED MEDICATIONS. CBG WNL AND PT REFUSED 1 UNIT INSULIN. CONTINUES TO AMBULATE TO BATHROOM APPROX EVERY 5 MINUTES TO HAVE BM. 1/4 OF SECOND BOWEL PREP BOTTLE CONSUMED. PT RELUCTANT TO DRINK ANYMORE. EDUCATION PROVIDED.
--- NOTE | 2022-08-16 22:03 | NUR ---
RN IN ROOM TO ADMINISTER IV LOPRESSOR - PT UP TO BATHROOM TO HAVE BM, REMAINS LIQUID AND GREEN IN COLOR. PT STATES PAIN IS IMPROVING, NOW 5/10. DENIES FURTHER NEEDS, CALL LIGHT IN REACH.
--- NOTE | 2022-08-17 02:30 | NUR ---
PT USES CALL LIGHT TO REQUEST ASSISTANCE TO BATHROOM. LIQUID GREEN STOOL NOTED. ENCOURAGED TO FINISH BOWEL PREP QUICKLY. VS OBTAINED, WNL. PT RATES PAIN 8/10 GENERALIZED CHRONIC.
--- NOTE | 2022-08-17 05:34 | NUR ---
RN IN ROOM TO ASSIST PT BACK TO BED FROM BATHROOM. PT STEADY ON FEET. BMS NOW CLEAR - PT ROOM CLEANED AND PT DENIES FURTHER NEEDS. CALL LIGHT IN REACH.,
--- NOTE | 2022-08-17 06:00 | NUR ---
LABS PULLED FROM PROXIMAL LINE OF IJ, 10ML WASTED AND FLUSHED AFTER WITH 10ML NS. PT BACK AND FORTH TO BATHROOM SEVERAL TIMES CONTINUING TO HAVE CLEAR LIQUID BM. BOWEL PREP COMPLETE, PT NOW NPO. WARM BLANKET PROVIDED. CALL LIGHT IN REACH.
--- NOTE | 2022-08-17 07:30 | NUR ---
PATIENT SHIFT REPORT RECIEVED FROM YARN MAN RN. PATIENT RESTING IN BED. PATIENT HAMMOND CALL LIGHT IN REACH AND CALLS APPROPRIATELY. PATIENT HAS BEEN GETTING UP ON HER OWN AND USING THE BATHROOM. PATIENT DENIES ANY OTHER NEEDS AT THIS TIME. WILL CONTINUE TO CLOSELY MONITOR.
--- NOTE | 2022-08-17 08:45 | NUR ---
THIS RN IN TO ASSESS PATIENT. PATIENT RESTING IN BED. PATIENTS BREATH SOUNDS CLEAR AND DIMINISHED IN THE BASES. PATIENTS BOWEL TONES ACTIVE. PATIENTS ABD REMAINS DISTENDED, BUT IS IMPROVED FROM YESTERDAY. PATIENT STATES "I DONT THINK I HAVE ANYTHING LEFT TO POOP". PATIENT SEEMS TO BE IN GOOD SPIRITS THIS MORNING. PATIENT STATES "I DO FEEL BETTER THAN THE PRIOR DAYS". MEDICATIONS GIVEN WITH THIS RN AND STUDENT RN. PATIENT COMPLAINS OF CHRONIC PAIN. SCHEDULED PAIN MEDICATION GIVEN WITH A SIP OF WATER. STUDENT NURSE REMAINS AT THE BEDSIDE TO HELP WITH AM CARES. WILL CONTINUE TO CLOSELY MONITOR.
--- NOTE | 2022-08-17 10:00 | NUR ---
PATIENT UP TO SHOWER (AVOIDING CENTRAL LINE.) PATIENT WAS VERY STEADY ON HER FEET AND TOLERATED SHOWER WELL. TEETH AND HAIR BRUSHED. FRESH LINEN AND GOWN PROVIDED. PATIENT NOW SITTING UP IN BED, PERSONAL ITEMS AND CALL LIGHT IN EASY REACH
--- NOTE | 2022-08-17 10:30 | NUR ---
PATIENT UP TO THE SHOWER WITH STONECUTTER ASSISTANTGrady QUINN. WILL SHOWER FROM THE WAIST DOWN ONLY TO AVOID CENTRAL LINE.
--- NOTE | 2022-08-17 11:08 | OR ---
[facility] [address] [place], [place] [address] Signed DATE OF OPERATION: 08/13/2022 SURGEON: Padmini Banks MD PROCEDURE: Esophagogastroduodenoscopy. PREOPERATIVE DIAGNOSIS: Upper GI bleed, hematemesis. POSTOPERATIVE DIAGNOSES: Upper GI bleed, hematemesis, duodenal ulcer. ESTIMATED BLOOD LOSS: None. IMPLANTS: None. COMPLICATIONS: None. DISPOSITION: Stable to PACU. INDICATIONS FOR PROCEDURE: The patient is a 67-year-old female, who presented to the emergency room with hematemesis large volume with hypotension. She was resuscitated and stabilized in the emergency department. Plan was made to proceed esophagogastroduodenoscopy to rule out active/ongoing bleeding. The risks of procedure were explained to the patient including but not limited to bleeding, infection, aspiration, perforation, requiring surgical intervention, missed diagnosis including cancer, need for additional procedures, risk of anesthesia, DVT, PE, TX, stroke, . The patient understood risks and signed informed consent. PROCEDURE IN DETAIL: After transportation to the GI suite and establishment of monitored anesthesia care, the patient was positioned in standard fashion. Endoscope was introduced through the oral cavity into the esophagus. No oropharyngeal or proximal esophageal lesions were noted. The endoscope was passed through the esophagus. There was no abnormality of motility Electronically Signed By: PADMINI BANKS MD 08/17/22 1108 PATIENT NAME: LEANNE ALTAMIRANO OPERATIVE REPORT DATE OF : 57 REPORT #: [id number] PHYSICIAN: PADMINI BANKS MD PCP: RAHAT MARIE MD REPORT IS CONFIDENTIAL AND NOT TO BE RELEASED WITHOUT AUTHORIZATION [facility] [address] [place], [place] [address] Signed noted. Gastroesophageal junction was noted at 40 cm. No esophagitis was noted. A small hiatal hernia was noted. Entry was made into the stomach. There was a large amount of blood and the stomach was irrigated and suctioned off. The endoscope was advanced along the greater curvature to the pyloric region. No lesions or ulcers were noted. The pylorus was entered. The duodenum was entered up to D2 and photographed. There was a small ulcer in the duodenal bulb, but there was no stigmata of bleeding noted. No lesions were noted in the antrum. Retroflexion was performed at the angularis incisura. A small hiatal hernia was noted. Additional lavage and suctioning of food, clot, and blood was performed. The area was photographed. The endoscope was then withdrawn in retrograde fashion. No intervention was performed. The patient tolerated the procedure without any complications and was transferred in stable condition to postanesthesia care unit. aPdmini Banks MD CU/MODL /[id number] Copies: ~ Electronically Signed By: PADMINI BANKS MD 08/17/22 1108 PATIENT NAME: LEANNE ALTAMIRANO OPERATIVE REPORT DATE OF : 57 REPORT #: [id number] PHYSICIAN: PADMINI BANKS MD PCP: RAHAT MARIE MD REPORT IS CONFIDENTIAL AND NOT TO BE RELEASED WITHOUT AUTHORIZATION
--- NOTE | 2022-08-17 11:25 | NUR ---
PATIENT UP TO THE SHOWER WITH [employer]. PATIENT TOLERATED WELL. PATIENT RESTING BACK IN BED NOW AT THIS TIME. PATIENT STATES "WOW, I REALLY NEEDED THAT". PATIENT DENIES ANY OTHER NEEDS AT THIS TIME. WILL CONTINUE TO CLOSELY MONITOR.
--- NOTE | 2022-08-17 12:46 | NUR ---
MARLA RN HERE TO TAKE PATIENT FOR HER PROCEDURE. PATIENT ABLE TO AMBULATE TO STRETCHER. WARM BLANKET PROVIDED. PATIENT DENIES ANY OTHER NEEDS AT THIS TIME. WILL CONTINUE TO CLSOELY MONITOR.
--- NOTE | 2022-08-17 14:25 | NUR ---
PATIENT ARRIVED FROM PACU WITH PACU STAFF. PATIENT WAS TRANSFERED FROM THE STRETCHER TO THE BED. PER REPORT PATIENT RECIEVED PROPOFOL. PATIENT HAD 2 POLYPS AND NO SIGNS OF BLEEDING. PATIENT NOW RESTING ON HER SIDE. PATIEN ON RA WITH SPO2 100%. WILL CONTINUE TO CLOSELY MONITOR.
--- NOTE | 2022-08-17 15:30 | NUR ---
PATIENT AWAKE AND ASSISTED UP TO THE CAMMODE. PATIENT STOOD AND WAS STEADY. PATIENT BEDDING CHANGED. PATIENT PUT ATTENDS ON FOR COMFORT. PATIENTS ARRIVED TO VISIT WITH PATIENT. PATIENT UPDATED ON PLAN OF CARE. PER MD ZEE ADVANCE PATIENTS DIET AND PATIENT MAY DISCHARGE WHEN HOSPITALIST IS READY TO DISCHARGE PATIENT.
--- NOTE | 2022-08-17 16:41 | NUR ---
PATIENT REQUESTED PRN PAIN MEDICATION FOR PAIN 06/06. PATIENT THEN UP TO THE BATHROOM. PATIENT IS STEADY ON HER FEET AND TOLERATING WELL. PATIENT IS NOW A MEDICAL PATIENT, BUT WILL BE STAYING IN ROOM 126 AT THIS TIME.
--- NOTE | 2022-08-17 18:00 | NUR ---
PATIENT ATE APPROX 50% OF HER MEAL WITH NO ISSUES. PATIENT VISITED WITH THIS RN AND JOKING WITH STAFF. PATIENT IS IN GOOD SPIRITS THIS EVENING. PATIENTS HANDS WASHED. PATIENT PROVIDED WITH FRESH ICE WATER. PATIENT ON TELE NUMBER 3. NO OTHER NEEDS AT THIS TIME. WILL CONTINUE TO CLOSELY MONITOR.
--- NOTE | 2022-08-17 19:45 | NUR ---
REPORT RECEIVED FROM DAY SHIFT RN. PT IS RESTING IN BED W/ HER EYES CLOSED AND APPEARS COMFORTABLE. CALL LIGHT AT HAND. WILL CONT TO MONITOR.
--- NOTE | 2022-08-17 21:34 | NUR ---
PT AWAKE FOR ASSESSMENT AND MEDICATION ADMINISTRATION. VSS. AFEBRILE. RESPIRATIONS EVEN AND UNLABORED. NO APPARENT DISTRESS NOTED. PT VERBALIZES NEEDS APPROPRIATELY. CALL LIGHT AT HAND. WILL CONT TO MONITOR.
--- NOTE | 2022-08-18 | NUR ---
PT AMBULATES IN ROOM AND TO BR INDEPENDENTLY. PT RESTING IN BED W/ HER EYES CLOSED AND APPEARS COMFORTABLE AT THIS TIME. CALL LIGHT AT HAND. WILL CONT TO MONITOR.
--- NOTE | 2022-08-18 02:54 | NUR ---
PT IS RESTING IN BED W/ HER EYES CLOSED AND APPEARS COMFORTABLE. VSS. NO DISTRESS NOTED. PT VERBALIZES HER NEEDS APPROPRIATELY. CALL LIGHT AT HAND. WILL CONTINUE TO MONITOR.
--- NOTE | 2022-08-18 07:30 | NUR ---
REPORT RECIEVED. PATIENT IS SLEEPING. NO DISTRESS NOTED.
--- NOTE | 2022-08-18 08:00 | NUR ---
WOKE FOR ASSESSMENT. PATIENT STATES SHE WAS SHORT OF BREATH LAST NIGHT, SAID SHE HAS SO MUCH GAS AND HER STOMACH IS SO TIGHT THAT IT IS MAKING HER SHORT OF BREATH. ENCOURAGED PATIENT TO SIT UP AT BEDSIDE OR IN CHAIR. PATIENT NOW SITTING AT BEDSIDE TO EAT BREAKFAST. PATIENT REFUSED ACCUCHECK. TALKED TO PATIENT ABOUT POSSIBLE DISCHARGE TODAY.
--- NOTE | 2022-08-18 08:15 | NUR ---
ROUTINE MEDICATIONS GIVEN, INCLUDING OXYCODONE 10 MG. PATIENT C/O BACK PAIN. CONTINUES TO EAT BREAKFAST.
--- NOTE | 2022-08-18 08:45 | NUR ---
DR. GUNN HERE TO SEE PATIENT AND TALK ABOUT PLAN FOR THE DAY. YANCY RECIEVED.
--- NOTE | 2022-08-18 10:24 | NUR ---
NAPPING NOW. NO DISTRESS NOTED.
--- NOTE | 2022-08-18 11:30 | NUR ---
AMBULATED TO BR TO VOID AND HAVE MED SIZED FORMED BROWN STOOL.
--- NOTE | 2022-08-18 12:30 | NUR ---
C/O INCREASED ABD DISTENTION AND PAIN AFTER EATING. WILL NOTIFY MD REGARDING THIS. PATIENT STATES SHE HAS BEEN TRYING TO WALK IN ROOM.
--- NOTE | 2022-08-18 13:17 | NUR ---
DR. GUNN AWARE OF PATIENT INCREASED ABD DISTENTION/PAIN. ORDERS RECIEVED FOR XRAY OF ABD/PELVIS. NORCO 10/325 MG PO GIVEN. POSITION OF COMFORT FOR PATIENT IS LAYING ON LEFT SIDE. HAS BOWEL SOUNDS, C/O SHORTNESS OF BREATH AND GERD. O2 SAT 98, MYLICON GIVEN PER ORDERS.
--- NOTE | 2022-08-18 13:29 | NUR ---
GRADUATE ASSISTANT HERE TO DO XRAY OF ABD.
--- NOTE | 2022-08-18 16:25 | NUR ---
DR. GUNN HERE TO SEE PATIENT, TALKED WITH PATIENT ABOUT STAYING ANOTHER NIGHT IN HOSPITAL. PATIENT IS UNDERSTANDING. PATIENT REFUSED ACCUCHECK. CONTINUES TO HAVE SEVERE ABD DISTENTION. DENIES NAUSEA.
--- NOTE | 2022-08-18 17:40 | NUR ---
DR. GUNN TALKED WITH DR. DURAN OVER PHONE. ORDERS RECIEVED FOR CLEAR LIQUIDS AND DULCOLAX SUPPOSITORY. PATIENT IS UNDERSTANDING OF PLAN.
--- NOTE | 2022-08-18 18:41 | NUR ---
SUPPOSITORY GIVEN, THEN TO
--- NOTE | 2022-08-18 19:30 | NUR ---
REPORT RECEIVED FROM DAY SHIFT RN. PT RESTING IN BED W/ HER EYES CLOSED AND CALL LIGHT AT HAND. NO DISTRESS NOTED. WILL CONT TO MONITOR.
--- NOTE | 2022-08-18 22:00 | NUR ---
PT UP TO BR INDEPENDENTLY. MEDICATIONS ADMINISTERED ORDERED. VSS. AFEBRILE. RESPIRATIONS EVEN AND UNLABORED. NO DISTRESS NOTED. VERBALIZES NEEDS APPROPRIATELY. CALL LIGHT WITHIN REACH. WILL CONTINUE TO MONITOR.
--- NOTE | 2022-08-19 01:00 | NUR ---
PT UP TO BR INDEPENDENTLY. VSS. VERBALIZES NEEDS APPROPRIATELY. CALL LIGHT WITHIN REACH. WILL CONT TO MONITOR.
--- NOTE | 2022-08-19 04:00 | NUR ---
PT REPOSITIONING IN BED INDEPENDENTLY. UP TO BR. PT IS TOLERATING CLEAR LIQUID DIET AND STATES SHE IS PASSING GAS. ABDOMEN IS DISTENDED AND TENDER W/ PALPATION; BOWEL TONES ACTIVE. ENCOURAGING AMBULATION. CALL LIGHT AT HAND. WILL CONT TO MONITOR.
--- NOTE | 2022-08-19 05:45 | NUR ---
BLOOD DRAW FROM CENTRAL LINE COMPLETED. PT TOELRATED WELL. IV FLUSHED WELL, GOOD BLOOD RETURN, CLAVE CHANGED. NO OTHER NEEDS. CALL LIGHT IN REACH.
--- NOTE | 2022-08-19 07:30 | NUR ---
REPORT RECIEVED. PATIENT IS SITTING UP AT BEDSIDE. C/O ABD PAIN, ABD IS MORE DISTENDED AND TIGHT.DENIES NAUSEA.
--- NOTE | 2022-08-19 08:00 | NUR ---
ASSESSMENT DONE. DR. GUNN AWARE OF PATIENT INCREASED ABD DISTENTION. CT OF ABD TO BE ORDERED.
--- NOTE | 2022-08-19 08:55 | NUR ---
TO CT VIA W/C FOR CT OF ABD.
--- NOTE | 2022-08-19 09:15 | NUR ---
RETURNT TO ROOM 126. BACK TO BED. READY TO TAKE CLEAR LIQUIDS.
--- NOTE | 2022-08-19 10:30 | NUR ---
TO BR TO EXPELL LARGE FORMED LIGHT BROWN STOOL. IS STABLE ON FEET. PATIENT NOW STANDING AT SINK IN BR, TAKING CARE OF HER ADL'S.
--- NOTE | 2022-08-19 12:25 | NUR ---
dr. manzanares HERE TO SEE PATIENT.
--- NOTE | 2022-08-19 13:00 | NUR ---
PATIENT TAKING CLEAR LIQUIDS. DR. DURAN TALKING WITH DR. GUNN VIA PHONE REGARDING HIS CONSULT FINDINGS ON PATIENT.
--- NOTE | 2022-08-19 14:00 | NUR ---
C/O SEVERE HAND CRAMPS. HEAT APPLIED.
--- NOTE | 2022-08-19 14:15 | NUR ---
LASIX 4 MG IV, ALBUMIN, FLEXERIL 5 MG, LOPRESSOR 2.5 MG IV GIVEN. CONTINUES WITH INTERMITTED HAND CRAMPS IN LEFT HAND.
--- NOTE | 2022-08-19 14:35 | NUR ---
US OF ABD BEING DONE AT BEDSIDE.
--- NOTE | 2022-08-19 15:00 | NUR ---
ALBUMIN INFUSED. CONTINUES WITH MILD CRAMPS IN HANDS AND LEGS.
--- NOTE | 2022-08-19 16:00 | NUR ---
PATIENT STATES SHE FEELS RELAXED AND WIPED OUT. PATIENT SAID SHE THINKS IT MIGHT BE FROM THE FLEXERIL. IS W/O C/O NAUSEA. ABD REMAINS GROSSLY DISTENDED. STATES SHE DOES FEEL A LITTLE BIT BETTER NOW THAN EARLIER. TALKATIVE.
--- NOTE | 2022-08-19 17:00 | NUR ---
SITTING UP AT BEDSIDE TO EAT DINNER. HAS APPETITE,
--- NOTE | 2022-08-19 17:19 | CONS ---
[facility] [address], [place] [address] Signed DATE OF CONSULTATION: 08/19/2022 CHIEF COMPLAINT: Abdominal distention. HISTORY OF PRESENT ILLNESS: Veronique is a 67-year-old female, who I have known for many years. She is known to have type 2 diabetes with diabetic gastroparesis, diabetic peripheral neuropathy, and diabetic retinopathy. She is known to have various somatic complaints associated with fibromyalgia including abdominal complaints and esophageal complaints. She often has nausea, vomiting, constipation, diarrhea. She has a previous history of pyloric channel ulcer. She had cardiac evaluations which have been negative. She drank heavily in the past but has not drank in probably 20 years. She is noted to have mild nodularity of the liver, but her laboratory work always seems to be fine. She also has chronic pain syndrome and is on daily opioids. She had a partial transvaginal hysterectomy for a uterine fibroid tumor many years ago. Both ovaries were left in place. I helped her with upper endoscopy back in 2010, which she says was unremarkable and a negative CLOtest. I removed her gallbladder in 2010 because the HIDA scan reproduced her symptoms. She had severe cholesterolosis and chronic cholecystitis. Her colonoscopy in 2011 with myself showed minimal diverticulosis and we asked her to follow up in 10 years. Because of her diabetic gastroparesis, she did undergo laparoscopic pyloroplasty with Dr. Grewal around 2010 or 2013 in that timeframe. She said because of the gastroparesis, she does not really eat much. She came in November of this year for upper GI bleed and underwent endoscopy with Dr. Juice Borjas and was said to have a duodenal ulcer with some gastritis. She comes back with again vomiting significant amounts of blood and came into the emergency room. She received a total of 5 units of packed red blood cells. She has a right internal jugular venous catheter in place. She was admitted to the Internal Medicine Service stabilized and then taken for upper endoscopy on 08/13 by our locum surgeon for her upper endoscopy. Again, she had a duodenal ulcer with lots of old blood in her stomach and some food in the stomach as well. Her hemoglobin has been stable now right around 7.6. Mean cell volume is good at 85. Platelet count is good at 164. Albumin is low at 2.1. Her liver function tests were negative and the INR was good at 1.1. COVID was negative. No biopsies in the stomach. She then underwent her colonoscopy on 08/17/2022 with the locum surgeon after a bowel prep and she had one polyp in the right and left colon removed with a cold snare and the cold biopsy forceps. Of course, that pathology is pending. There was some thought of sending her home, but she developed progressive abdominal distention and discomfort and has not been able to eat much. She has passed some small bowel movements without blood. Very little gas. A repeat abdominal x-ray was performed yesterday, which showed air in the small bowel as well as in the colon and rectum. There seems to be some opaque fluid in between these bowel loops. CT scan was ordered today for followup. It has not been read yet. I compared it to her CT angiogram a few days ago. She clearly had some mild nodularity liver and I think moderate to significant ascites. Electronically Signed By: HERMINIA DURAN MD 08/19/22 8118 PATIENT NAME: VERONIQUE ALTAMIRANO CONSULTATION DATE OF : 57 REPORT #: [id number] PHYSICIAN: HERMINIA DURAN MD PCP: RAHAT MARIE MD REPORT IS CONFIDENTIAL AND NOT TO BE RELEASED WITHOUT AUTHORIZATION [address] [address] Signed Spleen seems to be normal in size. No obvious varices have noted or dictated. I have been asked to see her with respect to the above. Currently, she is sitting at the bedside in her chair. She is on a clear liquid diet. Her right central venous catheter remains in place, but no IV fluids. She is in no significant distress, but her abdomen certainly is bloated and she has very thin arms and legs consistent with a body habitus of someone with liver failure. PAST MEDICAL HISTORY: Anxiety depression panic attacks, posttraumatic stress disorder, obstructive sleep apnea, glaucoma, hypertension, gastroesophageal reflux disease, anemia, type 2 diabetes, peripheral neuropathy, diabetic retinopathy, diabetic gastroparesis, diverticulosis, hyperlipidemia, fibromyalgia, chronic pain syndrome requiring opioids, peptic ulcer disease for the 3rd episode, gastritis, muscle spasms in her chest, bursitis, vaginal dryness, uterine fibroid tumor, hypocalcemia, chronic cholecystitis and cholesterolosis. PAST SURGICAL HISTORY: Includes a partial transvaginal hysterectomy many years ago for the uterine fibroid tumor. She had EGD in [address] Duran which was unremarkable and a negative CLOtest. She had a laparoscopic cholecystectomy in [address] Duran for severe cholesterolosis and chronic cholecystitis. She had a colonoscopy in [address] Duran with minimal diverticulosis, was asked to follow up in 10 years. She had a laparoscopic pyloroplasty with Dr. Grewal for diabetic gastroparesis around 2011 to 2013. She had a cyst removed from her right knee anteriorly. She had upper endoscopy in November [address] Juice Borjas for duodenal ulcer and gastritis. SOCIAL HISTORY: She does not smoke or drink. She is , but has not seen her for quite some time. She has two children. She is a patient with the [facility]. FAMILY HISTORY: Dad and brother had coronary artery disease. REVIEW OF SYSTEMS: She had 10 systems reviewed and really not anything new since I have seen her a few years ago. ALLERGIES: Seasonal allergies, cortisone, Phenergan, amoxicillin, Flagyl, doxycycline. MEDICATIONS: Protivin, oxycodone, pseudoephedrine, gabapentin, vitamin D, metformin, atorvastatin, glipizide, cetirizine, Climara patch, estrogen vaginal cream and Protonix, but now most likely Nexium. Electronically Signed By: HERMINIA DURAN MD 08/19/22 1719 PATIENT NAME: VERONIQUE ALTAMIRANO CONSULTATION DATE OF : 57 REPORT #: [id number] PHYSICIAN: HERMINIA DURAN MD PCP: RAHAT MARIE MD REPORT IS CONFIDENTIAL AND NOT TO BE RELEASED WITHOUT AUTHORIZATION [facility] [address], [place] [address] Signed PHYSICAL EXAMINATION: VITAL SIGNS: Blood pressure 126/51, heart rate is 74, respiratory rate 15, temperature is 98.1, she is 98% on room air. She is 5 feet 6 inches, 68 kg. She has had at least four bowel movements in the last two days, but very little flatus. GENERAL: Veronique is a 67-year-old female, who is sitting in her chair at the bedside. She always looks younger than her stated age. She is always well-kept and has good insight into her history. She told me she has very little diet associated with the gastroparesis. She is thin as always with thin arms and thin legs. She is in no obvious distress. LUNGS: Clear to auscultation bilaterally. HEART: Regular rate and rhythm without murmurs. In fact, the echocardiogram showed the left ventricular ejection fraction good at 65% to 70%. ABDOMEN: Significantly protuberant, mildly tender and firm, somewhat dull to percussion. RECTAL: Exam is not repeated. LABORATORY DATA: Her white count is 4.3, hemoglobin is stable at 7.6 was 7.8, mean cell volume is 85, neutrophils 57 platelets are 164. Electrolytes are good. BUN 7, creatinine 0.65, glucose 130, magnesium slightly low at 1.6, calcium a little low at 7.3, although the albumin is low at 2.1. Liver function tests were negative with a total bilirubin of 0.9, AST 19, ALT 23, alkaline phosphatase 66, total protein is a little low at 5.3. Her INR is good at 1.1. COVID was negative. The colonoscopically biopsies are still pending. RADIOGRAPHIC STUDIES: CT scan of the abdomen and pelvis showed mild cirrhosis of the liver and probable distal gastric ulcer. The CT angiogram showed the same with the ascites. The red blood cell scan was negative. Abdominal x-ray showed 3 cm loops of small bowel with air all the way through the colon and the rectum but it was a bit opacified consistent with the ascites. The CT scan of abdomen and pelvis today again shows the moderate to significant ascites. No obvious dilated loops of bowel to show the bowel obstruction. The EGD on 08/13 showed the pyloric channel ulcer with some blood in the stomach and some food in the stomach. No active bleeding. Colonoscopy showed two small polyps on 08/17 taken out with the cold snare and the cold biopsies. ASSESSMENT AND PLAN: Veronique is a 67-year-old female, who came in with rather significant hematemesis I am sure associated with her pyloric channel/duodenal ulcer. She required significant resuscitation with 5 units of packed red blood cells and IV fluids. She has now had worsening of her abdominal ascites. She certainly has some mild nodularity to her liver, but has not drank in over 20 years. Liver function tests and INR are actually good. Her heart is also good as well. It looks like she has some worsening ascites associated with her fluid resuscitation. I think I would hold off on a paracentesis at Electronically Signed By: HERMINIA DURAN MD 08/19/22 5159 PATIENT NAME: VERONIQUE ALTAMIRANO CONSULTATION DATE OF : 57 REPORT #: [id number] PHYSICIAN: HERMINIA DURAN MD PCP: RAHAT MARIE MD REPORT IS CONFIDENTIAL AND NOT TO BE RELEASED WITHOUT AUTHORIZATION [facility] [address], [place] [address] Signed this point. She should be able to eat and undergo diuresis and this should improve over the next few days. I have explained this to the Veronique and her nurse. I will call the Internal Medicine Service as well. Herminia Duran MD ALB/MODL /[id number] cc: [facility] Herminia Duran MD Copies: HERMINIA DURAN MD ~ Electronically Signed By: HERMINIA DURAN MD 08/19/22 1719 PATIENT NAME: VERONIQUE ALTAMIRANO CONSULTATION DATE OF : 57 REPORT #: [id number] PHYSICIAN: HERMINIA DURAN MD PCP: RAHAT MARIE MD REPORT IS CONFIDENTIAL AND NOT TO BE RELEASED WITHOUT AUTHORIZATION
--- NOTE | 2022-08-19 18:00 | NUR ---
TOOK DINNER WELL. VERY RESTFUL AT THIS TIME.
--- NOTE | 2022-08-19 19:33 | NUR ---
HAVING HAND CRAMPS AGAIN, HEAT APPLIED. IS IN ROOM. REPORT TO NEXT SHIFT.
--- NOTE | 2022-08-19 20:09 | NUR ---
REPORT RECEIVED FROM DAY SHIFT RN. PT IS LYING IN BED W/ HER AT BEDSIDE. C/O ABD PAIN- PRN PAIN MEDICATION ADMINISTERED ORDERED. VSS. CALL LIGHT AT HAND. PT VERBALIZES NEEDS APPROPRIATELY. WILL CONT TO MONITOR.
--- NOTE | 2022-08-19 23:00 | NUR ---
PT AMBULATING IN HALLWAY. UP TO BR INDEPENDENTLY. NO DISTRESS NOTED. CALL LIGHT AT BEDSIDE. VERBALIZES NEEDS APPROPRIATELY. WILL CONT TO MONITOR.
--- NOTE | 2022-08-20 07:30 | NUR ---
REPORT RECIEVED. PATIENT IS RESTING IN BED. NO DISTRESS NOTED.
--- NOTE | 2022-08-20 07:40 | NUR ---
DR. DURAN HERE TO SEE PATIENT, HE TALKED WITH PATIENT ABOUT LIVER DISEASE AND THE NEED TO SEE A VBA DEVELOPER. PATIENT RECEPTIVE.
--- NOTE | 2022-08-20 08:00 | NUR ---
ASSESSEMENT DONE. MAG DYE PER DR. DURAN ORDERS. ROUTINE MEDICATIONS GIVEN INCLUDING OXYCODONE. TALKED WITH PATIENT ABOUT POC FOR DAY, INDICATES UNDERSTANDING.
--- NOTE | 2022-08-20 08:30 | NUR ---
BREAKFAST PROVIDED, PATIENT SITTING AT SIDE OF BED. VITALS AND I&OS CHARTED. CALL LIGHT AND PERSONAL ITEMS IN EASY REACH.
--- NOTE | 2022-08-20 08:46 | NUR ---
DR. GUNN HERE TO SEE PATIENT.
--- NOTE | 2022-08-20 09:00 | NUR ---
TOOK BREAKFAST WELL. HAS BEEN SITTING AT BEDSIDE. TALKATIVE.
[2022-08-20] MEDS ORDERED: PANTOPRAZOLE SO40 MG PO (10:19)
[2022-08-20] MEDS ORDERED: LASIX20 MG PO (10:21)
[2022-08-20] MEDS ORDERED: SPIRONOLACTONE50 MG PO (10:21)
--- NOTE | 2022-08-20 10:30 | NUR ---
EDGARDO LIM'D DISCHARGE ORDERS RECIEVED.
--- NOTE | 2022-08-20 11:11 | NUR ---
PATIENT FINISHED WITH SHOWER. SITTING AT SIDE OF BED VISITING WITH PHARMACY. PERSONAL ITEMS AND CALL LIGHT IN EASY REACH
--- NOTE | 2022-08-20 11:30 | NUR ---
DISCHARGE INSTRUCTIONS GIVEN WITH PATIENT UNDERSTANDING.
--- NOTE | 2022-08-20 12:00 | NUR ---
TOOK LUNCH WELL. AWAITING RIDE HOME. IS W/O C/O.
--- NOTE | 2022-08-20 12:55 | NUR ---
discharged TO HOME WITH . RN TRANSPORTED PATIENT TO CAR VIA W/C.
--- NOTE | 2022-08-24 10:46 | PATH ---
[facility] [address] [facility] [place], [place] [address] Signed SPECIMEN(S): A ASCENDING/RIGHT COLON POLYP SPECIMEN(S): B DESCENDING/LEFT COLON POLYP SPECIMEN SOURCE: A. ASCENDING/RIGHT COLON POLYP B. DESCENDING/LEFT COLON POLYP CLINICAL HISTORY: Hematemesis. Polyps x 2, no sign of bleeding. FINAL PATHOLOGIC DIAGNOSIS: A. Colon, ascending/right, polypectomy: - Inflammatory polyp. - Prominent blood vessels are identified, suggestive of a concomitant hemangioma. B. Colon, descending/left, polypectomy: - Tubular adenoma. - There is no evidence of high-grade dysplasia or malignancy. COMMENT: Regarding specimen A, the sections through the polyp show portions of edematous and acutely inflamed colonic mucosa. The lesion has an overall polypoid configuration, and there is an increase in the vasculature of the lesion. Numerous eosinophils are present. The features constitute an inflammatory polyp. Inflammatory polyps can complicate any acute or chronic colitis, torsion or intussusception. They may also be seen in patients with mucosal prolapse, near diverticula or in stasis. If the biopsy was near the appendix, it could complicate appendiceal intussusception. TWK:frederick:[id number] MICROSCOPIC EXAMINATION: Histologic sections of all submitted blocks are examined by light microscopy. These findings, together with the gross examination, support the pathologic diagnosis. GROSS DESCRIPTION: Two specimens are received in two containers, labeled "CF." A. The specimen, labeled "CF, ascending colon polyp," is received in formalin and consists of three reyes soft tissue fragments that measure 0.2-0.4 cm in greatest dimension. The specimen is entirely PATIENT NAME: LEANNE ALTAMIRANO PATHOLOGY DATE OF : 57 REPORT #: [id number] PHYSICIAN: ARTIS SALINAS PCP: RAHAT MARIE MD REPORT IS CONFIDENTIAL AND NOT TO BE RELEASED WITHOUT AUTHORIZATION [facility] [address] [place], [place] [address] Signed submitted in cassette (A1). B. The specimen, labeled "CF, descending colon polyp," is received in formalin and consists of one reyes soft tissue fragment that measures 0.2 cm in greatest dimension. The specimen is entirely submitted in cassette (B1). JS (under the direct supervision of a pathologist) The Gross Description was prepared using a voice recognition system. The report was reviewed for accuracy; however, sound-alike word errors, addition and/or deletions may occur. If there is any question about this report, please contact Client Services. PERFORMING LABORATORY: The technical component was performed by [facility], [address] [place] [id number] (CLIA# [id number]). The professional interpretation was performed by [facility], [facility], [address] [place] [id number] (CLIA#: [id number]). Diagnostician: Erasto Cabrera MD Pathologist Electronically Signed 08/24/2022 Copies: ~ PATIENT NAME: LEANNE ALTAMIRANO PATHOLOGY DATE OF : 57 REPORT #: [id number] PHYSICIAN: ARTIS SALINAS PCP: RAHAT MARIE MD REPORT IS CONFIDENTIAL AND NOT TO BE RELEASED WITHOUT AUTHORIZATION
== END 2022-08-20 12:55 | disposition home or self-care (01) | DRG 378 ==
LOC: ED 21:13 → CCU 21:15 → ED 08-13 07:29 → CCU 08-14 11:37
PROVIDERS: Surgery; ADMIT Internal Medicine; ATTEND Internal Medicine
PROC: 02H633Z Insertion of Infusion Device into Right Atrium, Percutaneous Approach (ICD-10-PCS; 2022-08-12)
PROC: 0DJ08ZZ Inspection of Upper Intestinal Tract, Via Natural or Artificial Opening Endoscopic (ICD-10-PCS; 2022-08-13)
PROC: 3E033XZ Introduction of Vasopressor into Peripheral Vein, Percutaneous Approach (ICD-10-PCS; principal; 2022-08-13 15:00)
PROC: 30233N1 Transfusion of Nonautologous Red Blood Cells into Peripheral Vein, Percutaneous Approach (ICD-10-PCS; 2022-08-15)
PROC: 0DBK8ZX Excision of Ascending Colon, Via Natural or Artificial Opening Endoscopic, Diagnostic (ICD-10-PCS; 2022-08-17)
PROC: 0DBM8ZX Excision of Descending Colon, Via Natural or Artificial Opening Endoscopic, Diagnostic (ICD-10-PCS; 2022-08-17)
DX: K92.0 Hematemesis (principal); D62 Acute posthemorrhagic anemia; I47.1 Supraventricular tachycardia; N17.9 Acute kidney failure, unspecified; R18.8 Other ascites; D68.9 Coagulation defect, unspecified; K76.6 Portal hypertension; K26.4 Chronic or unspecified duodenal ulcer with hemorrhage; E11.43 Type 2 diabetes mellitus with diabetic autonomic (poly)neuropathy; K31.84 Gastroparesis; E78.00 Pure hypercholesterolemia, unspecified; I10 Essential (primary) hypertension; I95.9 Hypotension, unspecified; K29.01 Acute gastritis with bleeding; K63.5 Polyp of colon; E83.42 Hypomagnesemia; K92.1 Melena; F11.10 Opioid abuse, uncomplicated; Z20.822 Contact with and (suspected) exposure to COVID-19; M79.7 Fibromyalgia; K57.90 Diverticulosis of intestine, part unspecified, without perforation or abscess without bleeding; F41.0 Panic disorder [episodic paroxysmal anxiety]; F32.A Depression, unspecified; F43.10 Post-traumatic stress disorder, unspecified; G47.33 Obstructive sleep apnea (adult) (pediatric); K21.9 Gastro-esophageal reflux disease without esophagitis; H40.9 Unspecified glaucoma; G89.4 Chronic pain syndrome; D69.6 Thrombocytopenia, unspecified; K74.60 Unspecified cirrhosis of liver; E11.319 Type 2 diabetes mellitus with unspecified diabetic retinopathy without macular edema; M71.9 Bursopathy, unspecified; Z98.890 Other specified postprocedural states; Z87.19 Personal history of other diseases of the digestive system; Z79.02 Long term (current) use of antithrombotics/antiplatelets; Z79.899 Other long term (current) drug therapy; Z88.8 Allergy status to other drugs, medicaments and biological substances; Z79.84 Long term (current) use of oral hypoglycemic drugs; Z90.710 Acquired absence of both cervix and uterus; Z90.49 Acquired absence of other specified parts of digestive tract; Z88.0 Allergy status to penicillin; Z88.1 Allergy status to other antibiotic agents
CPT/HCPCS: 00731; 36415; 36430; 36556; 71045; 74018; 74174; 74177; 76705; 78278; 80048; 80053; 80076; 81001; 83036; 83735; 84100; 85025; 85027; 85060; 85610; 86850; 86900; 86901; 86922; 87502; 88305; 93306; 99285-25; A9270; A9560; C9113; C9803; J0171; J1815; J1940; J2250; J2270; J2370; J2405; J2704; J3010; J3430; J3475; J3480; J7030; J7050; J7060; J7120; J7121; P9016; P9035; P9047; Q9967; U0003